=== PATIENT | female | born 1985 | race Caucasian/White ===

== ENCOUNTER → 2016-11-20 | Outpatient (CLI) | payer BC ==
[~2016-11-20] MED LIST: FLUC200T PO; PRENTAB26 PO
== END | disposition home or self-care (01) ==
LOC: C.PAPS 10:01
PROVIDERS: ATTEND Obstetrics & Gynecology
DX: Z01.419 Encounter for gynecological examination (general) (routine) without abnormal findings (principal)

== ENCOUNTER → 2017-02-09 | Outpatient (CLI) | payer BC | END | disposition home or self-care (01) | LOC: C.LABSPEC 17:24 | PROVIDERS: ATTEND Obstetrics & Gynecology | DX: R39.9 Unspecified symptoms and signs involving the genitourinary system (principal) ==

== ENCOUNTER → 2017-04-11 | Outpatient (CLI) | payer BC ==
[2017-04-11 16:55] LABS: PREG INTERNAL NEGATIVE QC NEG CLEAR BACKGROUND; PREG INTERNAL POSITIVE QC POS CONTROL LINE
== END | disposition home or self-care (01) ==
LOC: C.LAB1850 15:58
PROVIDERS: ATTEND Obstetrics & Gynecology
DX: Z32.01 Encounter for pregnancy test, result positive (principal)

== ENCOUNTER → 2017-05-02 | Outpatient (CLI) | payer BC | END | disposition home or self-care (01) | LOC: C.LAB1850 11:16 | PROVIDERS: ATTEND Obstetrics & Gynecology | DX: Z34.01 Encounter for supervision of normal first pregnancy, first trimester (principal) ==

== ENCOUNTER 2017-05-03 05:44 | Day surgery (SDC) | payer BC ==
--- NOTE | 2017-05-02 17:33 | HISTORY & PHYSICAL EXAMINATION ---
DATE OF ADMISSION: 05/03/2017 PRINCIPAL DIAGNOSIS: Missed at 6 weeks. PRINCIPAL PROCEDURE: D&E. HISTORY OF PRESENT ILLNESS: The patient is a 31-year-old G1, P0 white female who presented for her initial OB visit on 05/02/2017. She had experienced no bleeding or cramping; however, on ultrasound, it was noted that it was a 6-week 2-day missed . By dates, she should have been 8 weeks 6 days. The patient was counseled on her options including expectant management, Cytotec induction or D&E. The patient has now elected for D&E. She understands the risks of procedure and is willing to proceed. All questions have been answered. PAST MEDICAL HISTORY: Significant for anxiety. PAST SURGICAL HISTORY: Tonsillectomy, wisdom teeth extraction and a cervical LEEP procedure approximately 4 years ago. ALLERGIES: She has no known drug allergies. OBSTETRICAL AND GYNECOLOGICAL HISTORY: No history of PID, VD or herpes. She did have an abnormal Pap smear with cervical dysplasia approximately 4 years ago for which she had a LEEP procedure. Pap smears have been within normal limits since then. Periods are every 29 days and with normal flow and minimal cramping. SOCIAL HISTORY: She does not smoke or drink. MEDICATIONS: vitamins. PHYSICAL EXAMINATION: VITAL SIGNS: Blood pressures 100/62. Vital signs are stable. GENERAL: She is a well-nourished and well-developed white female in no apparent distress. LUNGS: Clear to auscultation. HEART: Regular rate and rhythm. No murmurs or gallops. ABDOMEN: Soft, flat and nontender. There is no hepatosplenomegaly or masses palpable. PELVIC: Cervix is long, thick and closed. There is no evidence of any bleeding. There is evidence of yeast infection, however. Bimanual exam reveals a 8-9 weeks size uterus that is nontender, mobile and of normal contour. There are no adnexal masses present. EXTREMITIES: Without cyanosis or calf tenderness. ASSESSMENT: A 31-year-old who presented for first OB visit with a nonviable , measuring 6 weeks 2 days. The patient is electing to move ahead with the D&E. Her blood type is A positive. Please see the orders for further directions. MTDD
[~2017-05-03] VITALS: Ht 172.7 cm; Wt 73.5 kg
[2017-05-03] MEDS ORDERED: DOXYCYCLINE HYCLATE 100 MG CAP PO SCH ×2 (06:00→08:00)
[2017-05-03] MEDS ORDERED: LACTATED RINGER'S 1000ML 1,000 ML IV SCH (06:00)
[2017-05-03] MEDS ORDERED: FLUC200T PO (06:21)
[2017-05-03] MEDS ORDERED: PRENTAB26 PO (06:21)
[2017-05-03 06:24] VITALS: BP 106/68; PULSE 88; TEMP 37; O2SAT 99; Ht 172.7 cm; Wt 73.5 kg
[2017-05-03] MEDS ORDERED: MIDAZOLAM HCL 1 MG/ML 2ML VIAL ONE (06:40)
[2017-05-03] MEDS ORDERED: DEXAMETHASONE SOD INJ 4 MG/ML VIAL ONE (06:40)
[2017-05-03] MEDS ORDERED: ONDANSETRON INJ 2 MG/ML 2 ML VIAL ONE (06:40)
[2017-05-03] MEDS ORDERED: LIDOCAINE HCL 2% 2 ML VIAL (20MG/ML) ONE (06:40)
[2017-05-03] MEDS ORDERED: FENTANYL CITRATE INJ 50 MCG/1 ML 2 ML VIAL ONE (06:40)
[2017-05-03] MEDS ORDERED: PROPOFOL IV EMULSION 10 MG/ML 20 ML VIAL IV ONE (06:40)
[2017-05-03] MEDS: LACTATED RINGER'S 1000ML 1,000 ML IV SCH ×2 (06:43→06:44)
[2017-05-03 07:03] LABS: HEMATOCRIT 38.1 % (37-47); MEAN CELL VOLUME 89.6 fL (80-100); MEAN CORPUSCULAR HEMOGLOBIN 30.1 pg (25-34); MEAN PLATELET VOLUME 9.4 fL (7.4-10.4); PLATELET COUNT 299 K/uL (130-400); RED BLOOD COUNT 4.25 M/uL (4.2-5.4); WHITE BLOOD COUNT 6.47 K/uL (4.8-10.8)
[2017-05-03 07:05] LABS: MEAN CORPUSCULAR HGB CONC 33.6 g/dl (32-36)
--- NOTE | 2017-05-03 07:25 | History & Physical Bridge Note ---
H&P Re-Evaluation Bridge Note: I have examined the patient, reviewed the History & Physical and in the interval since the performance of the History & Physical I have noted the following changes of clinical significance: No changes noted
[2017-05-03] MEDS ORDERED: EpHEDrine SULFATE INJ 50 MG/ML AMP IV PRN (07:30)
[2017-05-03] MEDS ORDERED: ATROPINE SULFATE 0.1 MG/ML 5ML SYR IV PRN (07:30)
[2017-05-03] MEDS ORDERED: ONDANSETRON INJ 2 MG/ML 2 ML VIAL IV PRN ×2 (07:30→08:45)
[2017-05-03] MEDS ORDERED: KETOROLAC TROMETHAMINE 30 MG/ML VIAL ONE (08:10)
[2017-05-03] MEDS ORDERED: OXYTOCIN INJ 10 UNITS/ML VIAL ONE (08:19)
[2017-05-03] MEDS ORDERED: SODIUM CHLORIDE 0.9% 1000ML 1,000 ML IV SCH (08:40)
[2017-05-03] MEDS: FENTANYL CITRATE INJ 50 MCG/1 ML 2 ML VIAL IV PRN ×2 (08:42→08:49)
--- NOTE | 2017-05-03 08:43 | Discharge Instructions ---
Discharge Instructions Date of Service May 03, 2017. Admission Reason for Admission: Missed Discharge Discharge Diagnosis / Problem: recovery from D&E Discharge Goals Goal(s): Routine recovery after surgery Activity Recommendations Activity Limitations: per Instructions/Follow-up section . Instructions / Follow-Up Instructions / Follow-Up ACTIVITY RECOMMENDATIONS: * Avoid tampons, douching, hot tubs, pools, and intercourse until bleeding has stopped. * May shower as usual. * No strenuous activity for 24-48 hours. After 24-48 hours, you may do anything you feel like doing (driving and sports are okay). SPECIAL CARE INSTRUCTIONS: Special Diet: * Mild nausea may occur in the immediate post-operative period. * Take clear liquids such as tea, cola or bouillon until all nausea has subsided; you may then resume your normal diet. Special Care: * Light bleeding and vaginal spotting can last from a few days to 3-4 weeks. Call your doctor if bleeding becomes heavier than the heaviest part of your period. * Check your temperature twice a day for one week. If it goes above 100.4 degrees Fahrenheit (38.0 Celsius), notify your doctor. * Call your doctor's office for an appointment for 6 weeks after your surgery. FOLLOW-UP VISIT: Call your doctor's office for an appointment for 6 weeks after your surgery. Current Hospital Diet Patient's current hospital diet: Discharge Diet Recommended Diet: Regular Diet Procedures Procedures Performed: Dilation of the cervix, evacuation and curettage Pending Studies Studies pending at discharge: no Medical Emergencies . Who to Call and When: Medical Emergencies: If at any time you feel your situation is an emergency, please call 911 immediately. . Non-Emergent Contact Non-Emergency issues call your: Fingernail Former . . "Provider Documentation" section prepared by Renetta Navas. . VTE Core Measure Inpt VTE Proph given/why not?: Treatment not indicated
[2017-05-03] MEDS ORDERED: PROMETHAZINE HCL INJ 25 MG in SODIUM CHLORIDE 0.9% 50ML 50 ML IV PRN (08:45)
[2017-05-03] MEDS ORDERED: IBUPROFEN 600 MG TAB PO PRN (08:45)
[2017-05-03] MEDS ORDERED: KETOROLAC TROMETHAMINE 30 MG/ML VIAL IV. PRN (08:45)
[2017-05-03] MEDS ORDERED: OXYCODONE/ACETAMINOPHEN 5-325 TAB PO PRN ×2 (08:45)
--- NOTE | 2017-05-03 08:56 | OPERATIVE REPORT ---
DATE OF OPERATION: 05/03/2017 PREOPERATIVE DIAGNOSIS: Missed at 6 weeks gestation. POSTOPERATIVE DIAGNOSIS: Same. PROCEDURE: D&E. SURGEON: Dr. Renetta Cortes. ANESTHESIA: General. BLOOD LOSS: 100 mL. HISTORY OF PRESENT ILLNESS: The patient is a 31-year-old 1, para 0 white female who presented for initial OB visit on 05/02/2017. She has had no complications or symptoms prior to her visit. On ultrasound was noted to have a 6-week 2-day missed . She should have been by dates 8 weeks 6 days. The patient was counseled on her options including expectant management, Cytotec induction or a D&E. She elected for D&E. She understands the risks of procedure and is willing to proceed. GROSS FINDINGS: Uterus is gravid and consistent with approximately and 8 weeks size uterus. There are no adnexal masses present. External genitalia within normal limits. Cervix is closed and without lesions. PROCEDURE: After the patient received adequate general anesthetic, she was prepped and draped in usual sterile fashion. After bladder was emptied, a weighted speculum was placed in the vagina and the anterior lip of the cervix grasped with single tooth tenaculum. The cervix was then dilated to a #31 Hanks dilator. A #8 evacuator was used to evacuate the uterus. Sharp curettage post-evacuation revealed good uterine cry throughout. Bleeding was controlled with IV Pitocin. Bleeding at the tenaculum site was controlled with an Allis clamp. The patient tolerated the procedure well and was stable upon arrival in recovery room. I attest to the content of the Intraoperative Record and any orders documented therein. Any exception s are noted below.
[2017-05-03 09:20] VITALS: BP 108/62; PULSE 70; TEMP 37.3; O2SAT 98
--- NOTE | 2017-05-03 09:49 | Anesthesiology Progress Note ---
Anesthesia Post Op Note Date & Time May 03, 2017 at 09:47 Vital Signs Pain Intensity: 2.0 Vital Signs Past 12 Hours Date Time Temp Pulse Resp B/P (MAP) Pulse Ox O2 Delivery O2 Flow Rate FiO2 05/03/17 09:20 37.3 70 18 108/62 98 Room Air 05/03/17 09:17 77 05/03/17 09:17 77 98 05/03/17 09:15 99/69 05/03/17 09:12 70 16 97 05/03/17 09:12 68 16 05/03/17 09:11 82 16 100 05/03/17 09:11 79 16 05/03/17 09:10 36.5 05/03/17 09:10 113/64 05/03/17 09:06 68 16 99 05/03/17 09:06 69 16 05/03/17 09:05 113/67 05/03/17 09:01 70 16 100 05/03/17 09:01 71 16 05/03/17 09:00 113/71 05/03/17 08:56 73 16 05/03/17 08:56 73 16 100 05/03/17 08:55 69 16 111/72 100 05/03/17 08:55 70 16 05/03/17 08:50 72 16 05/03/17 08:50 72 16 120/72 100 05/03/17 08:45 67 12 119/73 100 05/03/17 08:45 70 12 05/03/17 08:40 69 16 123/78 100 05/03/17 08:40 69 16 05/03/17 08:35 80 16 118/85 100 05/03/17 08:35 81 16 05/03/17 08:35 36.9 80 16 118/85 100 Mask 10 05/03/17 06:24 37.0 88 16 106/68 (81) 99 Room Air Notes Mental Status: alert / awake / arousable, participated in evaluation Pt Amnestic to Procedure: Yes Nausea / Vomiting: adequately controlled Pain: adequately controlled Airway Patency, RR, SpO2: stable & adequate BP & HR: stable & adequate Hydration State: stable & adequate Anesthetic Complications: no major complications apparent
[2017-05-03 09:50] VITALS: BP 115/61; PULSE 77; O2SAT 100
[2017-05-03 10:20] VITALS: BP 119/70; PULSE 75; TEMP 36.7; O2SAT 100
== END 2017-05-03 10:23 | disposition home or self-care (01) ==
LOC: C.ACU 05:44
PROVIDERS: ATTEND Obstetrics & Gynecology
DX: O02.1 Missed abortion (principal); F41.9 Anxiety disorder, unspecified

== ENCOUNTER → 2017-07-09 | Outpatient (CLI) | payer BC | END | disposition home or self-care (01) | LOC: C.LAB1850 11:41 | PROVIDERS: ATTEND Obstetrics & Gynecology | DX: Z31.69 Encounter for other general counseling and advice on procreation (principal); O09.299 Supervision of pregnancy with other poor reproductive or obstetric history, unspecified trimester; Z3A.00 Weeks of gestation of pregnancy not specified ==

== ENCOUNTER → 2017-07-11 | Outpatient (CLI) | payer BC | END | disposition home or self-care (01) | LOC: C.LAB1850 13:10 | PROVIDERS: ATTEND Obstetrics & Gynecology | DX: O09.299 Supervision of pregnancy with other poor reproductive or obstetric history, unspecified trimester (principal); Z3A.00 Weeks of gestation of pregnancy not specified ==

== ENCOUNTER 2019-12-20 01:19 | Inpatient (IN) ==
[2019-12-20] MEDS ORDERED: OXYTOCIN 30 UNITS/500 ML BAG IV PRN ×3 (06:10→14:11)
[2019-12-20] MEDS ORDERED: BUTORPHANOL TARTRATE 1 MG/ML VIAL IV ONE (06:12)
--- NOTE | 2019-12-20 06:16 | History & Physical Report ---
Date of Service December 20, 2019 Assessment & Plan (1) Normal labor: admit for labor. epidural on demand. arom as needed. anticipate . History of Present Illness Chief Complaint: contractions Primary Care Provider: Jefry Callahan MD Patient is a 34yowf with iup at 40 0/7 weeks who presents to labor and delivery complaining of worsening contractions. No lof/vb. +fm. Has made change since here and demonstrated in active labor. complicated by ama. labs--A+/ab-ri/rprnr/hepb-/hiv-/gc/ct-/gbs neg/28 week gtt nl Allergies Allergy/AdvReac Type Severity Reaction Status Date / Time No Known Drug Allergies Allergy Unknown Verified 12/20/19 01:46 Home Medications Home Medications Medication Instructions Recorded Confirmed Type cholecalciferol (vitamin D3) 50 2,000 unit PO DAILY tab 05/09/19 12/20/19 History mcg (2,000 unit) tablet prenat.vits,shyann,srx-lxsi-jyogh 1 tab PO DAILY 05/09/19 12/20/19 History Patient History Medical History (Updated 12/20/19 @ 06:22 by Yesica Acosta MD, FACOG) ADD (attention deficit disorder) Cervical dysplasia (Resolved) Generalized anxiety disorder Headache History of varicella vaccination Hx of chlamydia infection Missed (Resolved) x4 Sinusitis Surgical History S/P dilation and curettage S/P LEEP of cervix S/P tonsillectomy S/P wisdom tooth extraction Social History Preferred Language: Somali Communication Ability: Effective Hearing Ability: Normal Drug Abuse Treatment Specialist Required: No Beliefs That Will Affect Care: None marital status: marital status details: [place] (33) [phone] Current Living Situation: Spouse Current Living Situation Comment: lives with spouse and dog current occupational status: employed current occupation: IT/marketing Other Information That Helps Us Care for You: No Feels Safe at Home: Yes Smoking Status: Never smoker Hx Alcohol Use: No Hx Substance Use: No OB History sab x 4, 2 in 2017, 2 in 2018 SPEECH AND LANGUAGE CLINICIAN History hx of leep Review of Systems All systems reviewed & are unremarkable except as noted in HPI & below Physical Exam Constitutional: WD/WN, vitals as above Gastrointestinal (Abdomen): soft, gravid, nt Psychiatric: A+Ox3, euthymic affect Genitourinary: cx--4/100/-2/bulging bag tocoq2-3min efm--130s with mod variability, accels to 150s, no decels Results & Data Vital Signs (Past 12 Hours) Vital Signs Temp Pulse Resp BP 12/20/19 01:50 36.6 C 83 16 127/91 12/20/19 01:30 83 127/91 Code Status & VTE Plan VTE Prophylaxis Plan VTE Prophylaxis will be ordered: No Coding Level of Care Code None Diagnoses Normal labor O80; Z37.9
[2019-12-20] MEDS ORDERED: BUTORPHANOL TARTRATE 1 MG/ML VIAL ONE (06:29)
[2019-12-20] MEDS: LACTATED RINGER'S 1,000 ML IV PRN ×3 (06:36→13:05)
[2019-12-20 06:49] LABS: Hematocrit (blood only) 39.3 % (37-47); Hemoglobin 13.6 g/dL (12.0-16.0); Mean Corpuscular Volume 92.5 fL (80-100); Mean Platelet Volume 10.9 fL (7.4-10.4); Platelet Count 248 K/uL (130-400); RDW Coefficient of Variation 13.6 % (11.5-14.5); RDW Standard Deviation 46.1 fL (36.4-46.3); Red Blood Count 4.25 M/uL (4.2-5.4); White Blood Count 17.11 K/uL (4.8-10.8)
[2019-12-20 06:57] LABS: Mean Corpuscular Hgb Conc 34.6 g/dL (32-36)
[2019-12-20] MEDS ORDERED: fentaNYL citrate 100 MCG/2 ML VIAL ONE (06:57)
[2019-12-20] MEDS ORDERED: ePHEDrine sulfate 50 MG/ML AMP ONE (06:57)
[2019-12-20] MEDS ORDERED: BUPIVACAINE 0.25% 30 ML VIAL ONE (06:57)
[2019-12-20] MEDS ORDERED: fentaNYL 2MCG/ML ROPIV 1.25MG/ML 100 ML BAG EPI ONE (06:58)
--- NOTE | 2019-12-20 07:09 | Anesthesiology Consultation ---
Date of Service December 20, 2019 Assessment & Plan ASA ASA2 Proposed Anesthesia Anesthesia Type: Labor Epidural Risk / Benefits Reviewed With: PT / POA / Parent / Guardian, Accepts Plan and Informed Consent Obtained History Height/Weight Height: 5 ft 8 in Weight: 92.079 kg Allergies Allergy/AdvReac Type Severity Reaction Status Date / Time No Known Drug Allergies Allergy Unknown Verified 12/20/19 01:46 Medications Home Medications Medication Instructions Recorded Confirmed Last Taken cholecalciferol (vitamin D3) 50 2,000 unit PO DAILY tab 05/09/19 12/20/19 12/19/19 22:00 mcg (2,000 unit) tablet prenat.vits,shyann,zdc-rztd-mnucp 1 tab PO DAILY 05/09/19 12/20/19 12/19/19 22:00 Active Medications Generic Name Dose Route Start Last Admin Trade Name Freq PRN Reason Stop Dose Admin Lactated Ringer's 1,000 mls @ 125 mls/hr 12/20/19 06:10 12/20/19 07:35 Lr IV 12/22/19 06:09 999 mls/hr .Q8H PRN Administration L&D Protocol Protocol Past Medical History Medical History ADD (attention deficit disorder) Cervical dysplasia (Resolved) Generalized anxiety disorder Headache History of varicella vaccination Hx of chlamydia infection Missed (Resolved) x4 Sinusitis Exercise / Class Metabolic Activity II 4-5 Yardwork/Stairs/Walk up hill Past Family History Family History Family/Other Breast cancer Aunt Ovarian cancer Denies family history of Prostate cancer Myocardial infarction Colorectal cancer Past Surgical History Surgical History S/P dilation and curettage S/P LEEP of cervix S/P tonsillectomy S/P wisdom tooth extraction Past Anesthesia History No Hx of Anesthesia Complications and No Family Hx of Anesthesia Complications History of PONV No Hx of PONV and No Hx of Motion Sickness Social History Smoking Status: Never smoker Hx Alcohol Use: No Hx Substance Use: No Review of Systems denies fever/cough/ colds/ chest pain/ SOB/ JOSÉ MIGUEL Constitutional: no fever and no chills Respiratory: no cough and no dyspnea denies JOSÉ MIGUEL Cardiovascular: no chest pain and no dyspnea on exertion Physical Exam Vital Signs Last Vital Signs Temp 36.6 C 12/20/19 01:50 Pulse 93 H 12/20/19 07:52 Resp 20 12/20/19 06:29 BP 133/92 12/20/19 07:41 Pulse Ox 94 12/20/19 07:52 ENMT Mouth: no TMJ abnormality and no dentition abnormality Thyromental Distance: > or= 3.5 Finger Breadths Mallampati Class: II Neck neck extension not limited Respiratory normal respiratory effort; no respiratory distress Auscultation: lungs clear to auscultation bilaterally Cardiovascular Rate/Rhythm: regular rate and regular rhythm Neurologic moves all extremities Psychiatric Orientation: alert and oriented x 3 Testing Laboratory Results 12/20/19 06:28
[2019-12-20] MEDS ORDERED: NALBUPHINE HCL INJ 10 MG/ML AMP IV PRN (08:31)
[2019-12-20] MEDS ORDERED: DiphenhydrAMINE HCL 50 MG/ML VIAL IV PRN (08:31)
[2019-12-20] MEDS ORDERED: NALOXONE HCL 1 MG in SODIUM CHLORIDE 0.9% 1000ML 1,000 ML IV PRN (08:31)
[2019-12-20] MEDS ORDERED: NALOXONE HCL 0.4 MG/1 ML VIAL/CARP IV PRN (08:31)
[2019-12-20] MEDS ORDERED: ePHEDrine sulfate 50 MG/ML AMP IV PRN (08:31)
[2019-12-20] MEDS ORDERED: fentaNYL 2MCG/ML ROPIV 1.25MG/ML 100 ML BAG EPI PRN (08:31)
[2019-12-20] MEDS ORDERED: PROMETHAZINE HCL 25 MG in SODIUM CHLORIDE 0.9% 50 ML IV PRN (08:31)
[2019-12-20] MEDS ORDERED: ONDANSETRON INJ 2 MG/ML 2 ML VIAL IV PRN (08:31)
--- NOTE | 2019-12-20 10:52 | Labor Progress Brief Note ---
Date of Service December 20, 2019 Subjective Reason For Note: Routine Evaluation pt seen about 1hr ago. comfortable with epidural. aware i am taking over care. Assessment & Plan (1) Normal labor: will see if arom improves ctx pattern but if not will add pit. not sure if meconium stained fluid, will monitor, pt aware. Physical Exam Constitutional: WD/WN, vitals as above Psychiatric: A+Ox3, euthymic affect Genitourinary: OB Exam Abdomen: + estimated weight (7-8#) Manual OB Exam: + cervical dilation (5), + cervical effacement 90%, + station -2 and + amniotic fluid (?mec stained. ) clear OB Exam Monitor Tracing: + external FHT monitor used (130 mod variability, reactive), + external uterine monitor used (q2-5) and + category II (occas variable decel.) Results & Data Vital Signs (Past 12 Hours) Vital Signs Temp Pulse Resp BP Pulse Ox 12/20/19 10:47 70 97 12/20/19 10:45 63 110/60 12/20/19 10:42 69 96 12/20/19 10:37 62 96 12/20/19 10:32 61 96 12/20/19 10:31 65 110/61 12/20/19 10:27 73 97 12/20/19 10:22 66 96 12/20/19 10:17 73 98 12/20/19 10:12 82 97 12/20/19 10:07 67 96 12/20/19 10:02 86 97 12/20/19 10:01 69 20 111/69 12/20/19 09:57 78 96 12/20/19 09:52 79 96 12/20/19 09:47 68 95 12/20/19 09:45 98.1 F 70 105/64 12/20/19 09:42 88 98 12/20/19 09:37 84 96 12/20/19 09:32 77 96 12/20/19 09:31 20 12/20/19 09:30 83 105/69 12/20/19 09:27 96 H 96 12/20/19 09:22 77 96 12/20/19 09:17 80 95 12/20/19 09:15 65 107/55 L 12/20/19 09:12 68 95 12/20/19 09:07 72 96 12/20/19 09:02 65 95 12/20/19 09:01 20 12/20/19 09:00 75 92/57 L 12/20/19 08:57 67 95 12/20/19 08:52 72 96 12/20/19 08:47 71 96 12/20/19 08:46 68 114/62 12/20/19 08:42 70 94 12/20/19 08:37 76 94 12/20/19 08:32 66 94 12/20/19 08:31 20 12/20/19 08:30 72 108/57 L 12/20/19 08:27 70 95 12/20/19 08:22 76 93 12/20/19 08:17 96 H 94 12/20/19 08:16 74 112/64 12/20/19 08:12 96 H 94 12/20/19 08:07 91 H 93 12/20/19 08:02 77 94 12/20/19 08:01 20 12/20/19 08:00 86 97/55 L 12/20/19 07:57 94 H 93 12/20/19 07:52 93 H 94 12/20/19 07:47 81 94 12/20/19 07:42 85 94 12/20/19 07:41 82 133/92 12/20/19 07:37 84 94 12/20/19 07:33 90 122/73 12/20/19 07:32 91 H 95 12/20/19 07:31 99 H 122/73 12/20/19 07:29 88 122/74 12/20/19 07:27 92 H 130/78 95 12/20/19 07:26 85 126/78 12/20/19 07:22 78 97 12/20/19 07:12 72 96 12/20/19 07:08 70 93 12/20/19 07:07 66 96 12/20/19 07:05 97.9 F 20 12/20/19 07:03 78 93 12/20/19 07:02 82 94 12/20/19 06:57 73 96 12/20/19 06:56 78 93 12/20/19 06:52 78 93 12/20/19 06:51 66 93 12/20/19 06:47 63 94 12/20/19 06:42 67 89 L 12/20/19 06:37 86 97 12/20/19 06:32 78 99 12/20/19 06:29 20 12/20/19 06:27 69 98 12/20/19 06:26 82 129/80 12/20/19 01:50 97.9 F 83 16 127/91 12/20/19 01:30 83 127/91 Coding Level of Care Code None Diagnoses Normal labor O80; Z37.9
[2019-12-20] MEDS ORDERED: OXYCODONE/ACETAMINOPHEN 5mg/325mg TAB PO PRN (14:11)
[2019-12-20] MEDS ORDERED: HYDROCORTISONE ACETATE 25 MG SUPP PR PRN (14:11)
[2019-12-20] MEDS ORDERED: SUPERCREAM 0.870% 15 GM JAR EXT PRN (14:11)
[2019-12-20] MEDS ORDERED: BENZOCAINE 20% AER SPR 82.5 GM CAN EXT PRN (14:11)
[2019-12-20] MEDS ORDERED: ACETAMINOPHEN 325 MG TAB PO PRN (14:11)
[2019-12-20] MEDS ORDERED: DIPHTHERIA/TETANUS/PERTUSSIS 0.5 ML SYR/VIAL IM ONE (14:11)
[2019-12-20] MEDS ORDERED: OXYTOCIN 20 UNITS in LACTATED RINGER'S 1,000 ML IV SCH (14:15)
--- NOTE | 2019-12-20 14:17 | Delivery Summary ---
Vaginal Delivery Summary Date of Service December 20, 2019 The patient dilated to complete and pushed to deliver a viable male Apgars 8 and 9 via over intact perineum. Mouth and nose bulb suctioned at perineum. Shoulders and body delivered with ease. Infant was vigorous and crying at . Cord clamped at 30 seconds of life and infant to maternal abdomen where the cord was then doubly clamped and cut. Placenta delivered spontaneously and intact, three-vessel cord. Hemostasis achieved with dilute pitocin and uterine massage and drainage of the bladder for approximately 100 cc under sterile conditions. Small right vaginal hymenal tear bleeding and stitched with figure of eight suture of 0- Vicryl for excellent hemostasis. Cervix and sulci intact. EBL 300 cc. Mother and baby stable recovery. [facility] Vaginal Delivery Charge Vaginal Delivery Codes: 74194 global code for the antepartum, delivery, and post-
--- NOTE | 2019-12-20 14:22 | Anesthesia Procedure Note ---
Date of Service December 20, 2019 Anesthesia Post Epidural Note Vital Signs Vital Signs: Temp Pulse Resp BP Pulse Ox 37.0 C 76 20 121/65 95 12/20/19 11:13 12/20/19 14:15 12/20/19 14:00 12/20/19 14:15 12/20/19 13:57 Pain Intensity Abdomen: Pain Intensity: 4 Notes Mental Status: alert / awake / arousable and participated in evaluation Patient Amnestic to Procedure: Yes Nausea / Vomiting: adequately controlled Pain: adequately controlled Airway Patency, RR, SpO2: stable & adequate BP & HR: stable & adequate Hydration State: stable & adequate Anesthetic Complications: no major complications apparent and Pt Satisfied with anesthetic care
[2019-12-20] MEDS: DOCUSATE SODIUM 100 MG CAP PO SCH (20:43)
[2019-12-20] MEDS: IBUPROFEN 600 MG TAB PO PRN (23:53)
[2019-12-21] MEDS: DOCUSATE SODIUM 100 MG CAP PO SCH ×2 (09:38→20:16)
--- NOTE | 2019-12-21 11:07 | Obstetrical Progress Note ---
Date of Service December 21, 2019 Assessment & Plan (1) Normal delivery at term: stable, routine care. Day #:: 1 Subjective Ambulation: ambulating normally Voiding: no voiding problems Diet Tolerance:: regular diet Lochia:: Small Feeding Type:: breast feeding doing well. denies complaints. breast feeding going well, bottom sore but not out of what she expected. Physical Exam Constitutional WD/WN, vitals as above Respiratory normal respiratory effort, lungs clear to auscultation Cardiovascular Rate/Rhythm: regular rate and regular rhythm Gastrointestinal (Abdomen) Percussion/Palpation: abdomen soft; abdomen nontender (ff 2 down) Musculoskeletal nt calves. Neurologic grossly normal Psychiatric A+Ox3, euthymic affect Results & Data Vital Signs (Past 12 Hours) Vital Signs Temp Pulse Resp BP 12/21/19 04:15 97.9 F 72 16 123/84 12/21/19 00:01 98.1 F 72 18 116/71
[2019-12-21] MEDS: IBUPROFEN 600 MG TAB PO PRN ×3 (13:25→23:58)
--- NOTE | 2019-12-22 07:12 | Obstetrical Progress Note ---
Date of Service December 22, 2019 Assessment & Plan (1) Normal delivery at term: doing well, ready for d/c. reviewed instructions, f/u 6 wk pp check. Day #:: 2 Subjective Ambulation: ambulating normally Voiding: no voiding problems Diet Tolerance:: regular diet Lochia:: Small Feeding Type:: breast feeding no issues with her recovery. Physical Exam Constitutional WD/WN, vitals as above Respiratory normal respiratory effort, lungs clear to auscultation Cardiovascular Rate/Rhythm: regular rate and regular rhythm Gastrointestinal (Abdomen) Inspection/Auscultation: abdomen normal to inspection Percussion/Palpation: abdomen soft fundus firm 2 cm below umbilicus Musculoskeletal nt calves no edema Neurologic grossly normal Psychiatric A+Ox3, euthymic affect Results & Data Vital Signs (Past 12 Hours) Vital Signs Temp Pulse Resp BP Pulse Ox 12/21/19 23:45 98.2 F 78 18 121/78 97 12/21/19 19:55 98.1 F 90 18 122/79
[2019-12-22] MEDS: DOCUSATE SODIUM 100 MG CAP PO SCH (09:05)
[2019-12-22] MEDS: IBUPROFEN 600 MG TAB PO PRN ×2 (09:05→13:09)
== END 2019-12-22 15:09 | disposition home or self-care (01) | DRG 807 ==
LOC: OPB 01:19 → 4S1 01:21 → 4S2 17:03